=== PATIENT | male | born 1970 | race Caucasian/White ===

== ENCOUNTER 2016-09-10 20:17 | Emergency (ER) | payer OTHER ==
[~2016-09-10] VITALS: Ht 170.2 cm; Wt 124.0 kg
[~2016-09-10 20:17] MED LIST: EXCEDRIN BACK1 EACH PO; NO HOME MEDS
[2016-09-10 20:44] LABS: HEMATOCRIT 46.7 % (38.0-50.0); MCH 31.6 PG (29.0-34.0); MCV 92.8 FL (86-99); MEAN PLAT.VOLUME 10.3 uM^3 (9.0-12.4); PLATELET COUNT 283 K/uL (156-360); RBC DIS.WIDTH-CV 13.5 % (11.8-14.6); RED BLOOD COUNT 5.03 M/uL (4.00-5.50)
[2016-09-10 20:53] LABS: CHLORIDE 106 mEq/L (99-109); POTASSIUM 3.8 mEq/L (3.7-5.4); SODIUM 142 mEq/L (136-147)
[2016-09-10 20:55] LABS: GLUCOSE 91 mg/dL (70-99)
[2016-09-10 20:56] LABS: ANION GAP 10 MEQ/L (2-14)
[2016-09-10 20:59] LABS: GFR ESTIMATE (CALCULATED) > 59 mL/min/; UREA NITROGEN (BUN) 13 mg/dL (9-23)
[2016-09-10 21:53] LABS: TROP-I INTERPRETATION NEGATIVE; TROPONIN-I < 0.01 ng/mL (0.0-0.30)
[2016-09-10] MEDS ORDERED: PREDNISONE20 MG PO (23:01)
[2016-09-10] MEDS ORDERED: VENTOLIN HFA18 GM IH (23:05)
[2016-09-10 23:41] LABS: TROP-I INTERPRETATION NEGATIVE; TROPONIN-I < 0.01 ng/mL (0.0-0.30)
[2016-09-11 00:04] VITALS: BP 134/99
[2016-09-11 00:07] LABS: INFLUENZA A VIRAL ANTIGEN NEGATIVE; INFLUENZA B VIRAL ANTIGEN NEGATIVE
== END 2016-09-11 00:36 | disposition home or self-care (01) ==
LOC: EME 20:17
PROVIDERS: Emergency Medicine
DX: J40 Bronchitis, not specified as acute or chronic (principal); F32.9 Major depressive disorder, single episode, unspecified; F41.9 Anxiety disorder, unspecified; I25.2 Old myocardial infarction; F17.200 Nicotine dependence, unspecified, uncomplicated
CPT/HCPCS: 71020; 71275; 80048; 84484; 85027; 87502; 93005; 99281; 99285; J7030